=== PATIENT | female | born 1950 ===

== ENCOUNTER 2016-10-31 16:50 | Emergency (ER) | payer OTHER, MEDICARE ==
[2016-10-31 17:47] VITALS: BP 152/85; PULSE 75; RESP 18; TEMP 97.7; O2SAT 96
[2016-10-31] MEDS ORDERED: Lidocaine 5% Patch TD STA (18:04)
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
[2016-10-31] MEDS ORDERED: Lidocaine 5% Patch TD ONE (18:16)
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
== END 2016-10-31 19:15 | disposition home or self-care (01) ==
LOC: C.ER 16:50
DX: M54.5 Low back pain (principal); V43.62XD Car passenger injured in collision with other type car in traffic accident, subsequent encounter
CPT/HCPCS: 72100; 96372; 99283; J1885